=== PATIENT | male | born 1955 | race Two or more races ===

== ENCOUNTER → 2024-07-20 | Outpatient (CLI) | payer MEDICARE, MEDICAID, SELFPAY ==
--- NOTE | 2024-07-20 13:50 | XR_ITS ---
Examination: CT soft tissue neck, with intravenous contrast. CT soft tissue neck without intravenous contrast 2-D coronal reconstructions. 2-D sagittal reconstructions. Date and time of exam :July 20, 2024 1412 hours INDICATIONS: Onset lump in the left side of the lower neck note is beginning 3 months ago. CTDI: vol (mGy):25.5 DLP: (mGycm):754 Technique: 1.25 mm axial sections of the neck of the obtained. Coronal and sagittal reconstructions have been obtained. Intravenous contrast administered 50 cc Isovue-370. Low dose protocols were performed. One or more of the following dose reduction techniques were used; automated exposure control, adjustment of the mA and/or KV according to patient size, use of iterative reconstruction technique. Findings: Symmetrical optic globes Symmetrical nasopharynx oropharynx Ectatic left internal carotid artery image 19 Symmetrical parotid submandibular glands The larynx appears normal No pathologic lymphadenopathy Normal epiglottis IMPRESSION: No pathologic lymphadenopathy Recommend ultrasound soft tissue follow-up of any palpable left neck lump
== END | disposition home or self-care (01) ==
PROVIDERS: PCP Nurse Practitioner Family; Referring Provider Nurse Practitioner Family; Visit Provider Nurse Practitioner Family
DX: R22.2 Localized swelling, mass and lump, trunk (principal)
CPT/HCPCS: 70492; A4649; Q9967

== ENCOUNTER → 2024-10-26 | Outpatient (CLI) | payer MEDICARE, MEDICAID, SELFPAY ==
--- NOTE | 2024-10-26 09:45 | XR_ITS ---
Examination: Ultrasound soft tissue neck TECHNIQUE: Grayscale sonographic images soft tissue neck Date and time: November 05, 2024 0950 hours INDICATIONS: Palpable lump in the left upper neck and shoulder with pain one year. FINDINGS: Multiple lymph nodes in the area concern, the largest 7 x 9 mm IMPRESSION: Multiple lymph nodes left neck, consider correlation with CT soft tissue neck post intravenous contrast follow-up
== END | disposition home or self-care (01) ==
LOC: CDIM 09:04
PROVIDERS: PCP Nurse Practitioner Family; Referring Provider Nurse Practitioner Family; Visit Provider Nurse Practitioner Family
DX: R22.9 Localized swelling, mass and lump, unspecified (principal)
CPT/HCPCS: 76536